=== PATIENT | male | born 2000 | race Caucasian/White ===

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

== ENCOUNTER 2022-01-03 16:53 | Emergency (ER) | payer OTHER ==
[~2022-01-03] VITALS: Ht 167.6 cm; Wt 48.5 kg
[~2022-01-03 16:53] MED LIST: ARIPIPRAZOLE10 MG PO; CLEOCIN HCL300 MG PO; FAMOTIDINE40 MG PO; FLUOXETINE HCL20 M1 PO
== END 2022-01-03 22:20 | disposition home or self-care (01) ==
LOC: ED 16:53
DX: R10.84 Generalized abdominal pain (principal); Z88.0 Allergy status to penicillin
CPT/HCPCS: 36415; 71045; 74177; 80053; 81001; 83690; 85025; 99284-25; J2405; Q9967

== ENCOUNTER 2022-06-22 02:19 | Emergency (ER) | payer SELFPAY ==
[~2022-06-22] VITALS: Ht 167.6 cm; Wt 45.4 kg
== END 2022-06-22 03:11 | disposition home or self-care (01) ==
LOC: ED 02:19
DX: J06.9 Acute upper respiratory infection, unspecified (principal); Z88.0 Allergy status to penicillin
CPT/HCPCS: 99283

== ENCOUNTER 2023-11-01 14:15 | Emergency (ER) | payer OTHER ==
[~2023-11-01] VITALS: Ht 167.6 cm; Wt 44.5 kg
[~2023-11-01 14:15] MED LIST changes: +ONDANSETRON ODT8 MG PO
[2023-11-01] MEDS ORDERED: ARIPIPRAZOLE5 MG PO (14:24)
[2023-11-01] MEDS ORDERED: FLUOXETINE HCL20 MG PO (14:24)
[2023-11-01 15:02] VITALS: BP 127/80
== END 2023-11-01 15:04 | disposition home or self-care (01) ==
LOC: ED 14:15
DX: M72.2 Plantar fascial fibromatosis (principal); F84.0 Autistic disorder; Z88.0 Allergy status to penicillin; Z79.899 Other long term (current) drug therapy
CPT/HCPCS: 99283

== ENCOUNTER 2023-12-29 17:52 | Emergency (ER) | payer OTHER ==
[~2023-12-29] VITALS: Ht 167.6 cm; Wt 50.0 kg
[~2023-12-29 17:52] MED LIST changes: +ARIPIPRAZOLE5 MG PO; +FLUOXETINE HCL20 MG PO
[2023-12-29] MEDS ORDERED: ABILIFY10 MG PO (18:04)
[2023-12-29] MEDS ORDERED: ARIPiprazole 10 MG TAB PO ONE (18:45)
[2023-12-29 18:47] LABS: BASOPHILS 0.9 % (0-2); EOSINOPHILS 0.6 % (0-6); HEMATOCRIT 39.8 % (35.0-50.0); HEMOGLOBIN 13.6 g/dL (12.0-18.0); LYMPHOCYTES 31.4 % (24-44); MCH 31.3 (27-36); MCHC 34.1 g/dl (30-36); MONOCYTES 8.4 % (0-12); NEUTROPHILS 58.7 % (39-80); PLATELET COUNT 310 K/uL (140-440); RBC 4.33 M/ul (4.3-5.7); RDW 12.4 (10.5-15.0)
[2023-12-29 19:14] LABS: ACETAMINOPHEN 0 ug/mL (10-30); ALBUMIN 4.2 g/dL (3.4-5.0); ALBUMIN/GLOBULIN RATIO 1.45 (1.1-2.4); ALCOHOL, MEDICAL <3 ng/dL (<3); ALKALINE PHOSPHATASE 148 U/L (46-116); ALT (SGPT) 30 U/L (14-59); AST (SGOT) 32 U/L (15-37); BILIRUBIN, TOTAL 2.3 ng/dL (0.2-1.0); BUN/CREATININE RATIO 19.41 (6.0-28.6); CALCIUM 9.5 mg/dL (8.5-10.1); CARBON DIOXIDE 31 mmol/L (21-32); CHLORIDE 103 mmol/L (98-107); CREATININE, SERUM 1.03 mg/dL (0.70-1.30); GLOMERULAR FILTRATION RATE,EST 105 mL/min (>60); PROTEIN, TOTAL 7.1 g/dL (6.4-8.2); TSH, 3RD GENERATION 1.056 uIU/mL (0.358-3.740); UREA NITROGEN 20 mg/dL (7-18)
[2023-12-29 19:16] LABS: SALICYLATE <0.2 mg/dL (2.8-20.0)
--- NOTE | 2023-12-29 21:44 | EKG ---
[facility] [address] [facility] [place] [address] Signed Sinus bradycardia with sinus arrhythmia Right atrial enlargement Lateral infarct , possibly acute Anterior injury pattern ACUTE NM / STEMI Abnormal ECG When compared with ECG of 30-JUL-2023 10:56, ST elevation now present in Lateral leads Confirmed by Tom Luevano MD ([id number]) on 12/29/2023 9:44:50 PM Electronically Signed By: TOM LUEVANO DO 12/29/232143 PATIENT NAME: PETEY HERNANDEZ VITOR Electrocardiogram DATE OF : [birth year] PHYSICIAN: TOM LUEVANO DO REPORT #: [id number] REPORT IS CONFIDENTIAL AND NOT TO BE RELEASED WITHOUT AUTHORIZATION
[2023-12-30 08:33] LABS: BILIRUBIN, URINE NEGATIVE (negative); BLOOD/HGB, URINE NEGATIVE (Negative); KETONE, URINE NEGATIVE (Negative); LEUK ESTERASE, URINE NEGATIVE (negative); NITRITE, URINE NEGATIVE (negative)
[2023-12-30 08:35] LABS: AMPHETAMINES, UR NEGATIVE (NEGATIVE); BARBITURATES, UR NEGATIVE (NEGATIVE); BENZODIAZEPINES, UR NEGATIVE (NEGATIVE); COCAINE, UR NEGATIVE (NEGATIVE); MARIJUANA (THC), UR POSITIVE (NEGATIVE); OPIATES, UR NEGATIVE (NEGATIVE); PHENCYCLIDINE, UR NEGATIVE (NEGATIVE); TRICYCLIC ANTIDEPRESSANT, UR NEGATIVE (NEGATIVE)
[2023-12-30 08:36] LABS: BUPRENORPHINE,UR NEGATIVE (NEGATIVE); MDMA, UR NEGATIVE (NEGATIVE); METHADONE, UR NEGATIVE (NEGATIVE); METHAMPHETAMINE, UR NEGATIVE (NEGATIVE); OXYCODONE, UR NEGATIVE (NEGATIVE)
[2023-12-30] MEDS ORDERED: ARIPiprazole 10 MG TAB PO SCH (10:15)
[2023-12-30 16:28] VITALS: BP 126/77
== END 2023-12-30 16:28 ==
LOC: ED 17:52
PROVIDERS: Emergency Medicine
DX: R45.851 Suicidal ideations (principal); Z88.0 Allergy status to penicillin; Z79.899 Other long term (current) drug therapy
CPT/HCPCS: 36415; 51798; 71045; 80053; 80307; 81003; 83735; 84443; 84484; 85025; 86140; 93005; 93010; 99285-25; G0480; U0002